=== PATIENT | male | born 1970 | race Two or more races ===

== ENCOUNTER 2018-03-30 05:36 | Emergency (ER) | payer OTHER | END 2018-03-30 06:53 | disposition home or self-care (01) | LOC: ER 05:36 | DX: M79.675 Pain in left toe(s) (principal); E11.9 Type 2 diabetes mellitus without complications; F10.10 Alcohol abuse, uncomplicated | CPT/HCPCS: 73630; 99284 ==

== ENCOUNTER → 2018-11-17 | Outpatient (CLI) | payer OTHER ==
[2018-11-11 14:50] VITALS: BP 137/86
[~2018-11-17] MED LIST: AMOX1TAB61 PO; CIPR250T30 PO; DOXY100T PO; GLIP5TAB10 PO; INSU100V3 SQ; LOPE2CAP PO; METF10007 PO; PANT20TA2 PO
== END | disposition home or self-care (01) ==
LOC: PMGWOUND 10:19
PROVIDERS: ATTEND Emergency Medicine Undersea and Hyperbaric Medicine
DX: E11.621 Type 2 diabetes mellitus with foot ulcer (principal); L97.513 Non-pressure chronic ulcer of other part of right foot with necrosis of muscle; E11.36 Type 2 diabetes mellitus with diabetic cataract; E78.00 Pure hypercholesterolemia, unspecified; K21.9 Gastro-esophageal reflux disease without esophagitis; E78.5 Hyperlipidemia, unspecified; M19.91 Primary osteoarthritis, unspecified site; Z87.891 Personal history of nicotine dependence; F10.10 Alcohol abuse, uncomplicated; Z79.4 Long term (current) use of insulin; Z90.49 Acquired absence of other specified parts of digestive tract
CPT/HCPCS: 99203

== ENCOUNTER → 2018-11-24 | Outpatient (CLI) | payer OTHER ==
[2018-11-11 14:50] VITALS: BP 137/86
== END | disposition home or self-care (01) ==
LOC: PMGWOUND 09:07
PROVIDERS: ATTEND Emergency Medicine Undersea and Hyperbaric Medicine
DX: E11.621 Type 2 diabetes mellitus with foot ulcer (principal); L97.513 Non-pressure chronic ulcer of other part of right foot with necrosis of muscle; E11.65 Type 2 diabetes mellitus with hyperglycemia; E11.36 Type 2 diabetes mellitus with diabetic cataract; L84 Corns and callosities; E78.00 Pure hypercholesterolemia, unspecified; E78.5 Hyperlipidemia, unspecified; M19.91 Primary osteoarthritis, unspecified site; K21.9 Gastro-esophageal reflux disease without esophagitis; Z79.4 Long term (current) use of insulin; Z87.891 Personal history of nicotine dependence; Z90.49 Acquired absence of other specified parts of digestive tract
CPT/HCPCS: 11042; 93923

== ENCOUNTER → 2018-11-28 | Outpatient (CLI) | payer OTHER ==
[2018-11-11 14:50] VITALS: BP 137/86
--- NOTE | 2018-11-28 17:00 | RAD ---
Ankle brachial index study. HISTORY: Nonhealing right foot wound, diabetic. Right LEXI is 1.1. Left LXEI is 1.1. IMPRESSION: Right and left ankle-brachial indices are within normal limits. Electronically signed by: Arnold Em MD (11/28/2018 4:57 PM) [id number]
--- NOTE | 2018-11-28 17:03 | RAD ---
Right lower extremity arterial Doppler ultrasound HISTORY: DX: NON HEALING WOUND RIGHT FOOT TECHNIQUE: Color Doppler, grayscale and duplex analysis performed of the right lower extremity arterial structures, from the common femoral artery through the runoff vessels. COMPARISON: None are available Findings: All velocity measurements are in centimeters per second. Triphasic waveforms are identified throughout the right lower leg arterial system. Scattered areas of mild focal calcified plaque are identified through the right femoral artery. No evidence of occlusion or high-grade narrowing. There is some irregularity of the runoff arteries in the calf and dorsalis pedis artery likely atherosclerotic. Peak systolic velocities range from 38 through 106 cm/s. IMPRESSION: Mild atherosclerotic disease. No evidence of occlusion or high-grade stenosis by ultrasound. Electronically signed by: Arnold Em MD (11/28/2018 5:00 PM) [id number]
== END | disposition home or self-care (01) ==
LOC: US 14:21
PROVIDERS: ATTEND Emergency Medicine Undersea and Hyperbaric Medicine
DX: E11.621 Type 2 diabetes mellitus with foot ulcer (principal); L97.513 Non-pressure chronic ulcer of other part of right foot with necrosis of muscle; I70.0 Atherosclerosis of aorta; I70.213 Atherosclerosis of native arteries of extremities with intermittent claudication, bilateral legs
CPT/HCPCS: 93922; 93926

== ENCOUNTER → 2018-12-01 | Outpatient (CLI) | payer OTHER ==
[2018-11-11 14:50] VITALS: BP 137/86
== END | disposition home or self-care (01) ==
LOC: PMGWOUND 09:25
PROVIDERS: ATTEND Emergency Medicine Undersea and Hyperbaric Medicine
DX: E11.621 Type 2 diabetes mellitus with foot ulcer (principal); L97.513 Non-pressure chronic ulcer of other part of right foot with necrosis of muscle; E11.65 Type 2 diabetes mellitus with hyperglycemia; E11.36 Type 2 diabetes mellitus with diabetic cataract; L84 Corns and callosities; E78.5 Hyperlipidemia, unspecified; M19.91 Primary osteoarthritis, unspecified site; E78.00 Pure hypercholesterolemia, unspecified; K21.9 Gastro-esophageal reflux disease without esophagitis; Z79.4 Long term (current) use of insulin; Z87.891 Personal history of nicotine dependence; Z90.49 Acquired absence of other specified parts of digestive tract
CPT/HCPCS: 11042

== ENCOUNTER → 2018-12-09 | Outpatient (CLI) | payer OTHER ==
[2018-11-11 14:50] VITALS: BP 137/86
== END | disposition home or self-care (01) ==
LOC: PMGWOUND 11:07
PROVIDERS: ATTEND Emergency Medicine Undersea and Hyperbaric Medicine
DX: E11.621 Type 2 diabetes mellitus with foot ulcer (principal); L97.513 Non-pressure chronic ulcer of other part of right foot with necrosis of muscle; E11.36 Type 2 diabetes mellitus with diabetic cataract; E11.65 Type 2 diabetes mellitus with hyperglycemia; L84 Corns and callosities; E78.5 Hyperlipidemia, unspecified; M19.91 Primary osteoarthritis, unspecified site; E78.00 Pure hypercholesterolemia, unspecified; K21.9 Gastro-esophageal reflux disease without esophagitis; Z79.4 Long term (current) use of insulin; Z87.891 Personal history of nicotine dependence; Z90.49 Acquired absence of other specified parts of digestive tract
CPT/HCPCS: 11042

== ENCOUNTER → 2018-12-16 | Outpatient (CLI) | payer OTHER ==
[2018-11-11 14:50] VITALS: BP 137/86
[2018-12-16 10:30] LABS: BASO # 0.1 x10^3/uL (0.0-0.2); BASO % 1 % (0-3); EOS # 0.1 x10^3/uL (0.0-0.7); EOS % 3 % (0-3); HEMATOCRIT 40.5 % (39.0-53.0); HEMOGLOBIN 13.7 g/dL (13.0-17.5); LYMPH # 1.4 x10^3/uL (1.0-4.8); LYMPH % 33 % (24-48); MEAN CORPUSCULAR HEMOGLOBIN 30 pg (25-35); MEAN CORPUSCULAR HGB CONC 34 g/dL (31-37); MEAN CORPUSCULAR VOLUME 89 fL (79-100); MONO # 0.5 x10^3/uL (0.0-1.1); MONO % 13 % (0-9); NEUT % 49 % (31-73); PLATELET COUNT 236 x10^3/uL (140-400); RED BLOOD COUNT 4.55 x10^6/uL (4.30-5.70); RED CELL DISTRIBUTION WIDTH 13.1 % (11.5-14.5); WHITE BLOOD COUNT 4.2 x10^3/uL (4.0-11.0)
[2018-12-16 10:45] LABS: CALCIUM 8.9 mg/dL (8.5-10.1); CREATININE 0.7 mg/dL (0.7-1.3); GFR 119.4; POTASSIUM 4.1 mmol/L (3.5-5.1)
[2018-12-17 04:17] LABS: HEMOGLOBIN A1C 8.8 % (4.8-5.6)
== END | disposition home or self-care (01) ==
LOC: PMGWOUND 09:11
PROVIDERS: ATTEND Emergency Medicine Undersea and Hyperbaric Medicine
DX: E11.621 Type 2 diabetes mellitus with foot ulcer (principal); L97.513 Non-pressure chronic ulcer of other part of right foot with necrosis of muscle; E11.65 Type 2 diabetes mellitus with hyperglycemia; E11.36 Type 2 diabetes mellitus with diabetic cataract; L84 Corns and callosities; E78.00 Pure hypercholesterolemia, unspecified; E78.5 Hyperlipidemia, unspecified; M19.91 Primary osteoarthritis, unspecified site; K21.9 Gastro-esophageal reflux disease without esophagitis; Z79.4 Long term (current) use of insulin; Z87.891 Personal history of nicotine dependence; Z90.49 Acquired absence of other specified parts of digestive tract
CPT/HCPCS: 11042; 36415; 80048; 83036; 85025; 85651

== ENCOUNTER → 2018-12-18 | Outpatient (CLI) | payer OTHER ==
[2018-11-11 14:50] VITALS: BP 137/86
--- NOTE | 2018-12-18 13:57 | RAD ---
MR of the right foot HISTORY: Nonhealing wound plantar surface of right foot at the ball of the foot. History of debridement. TECHNIQUE: Routine multiplanar sequences are obtained. COMPARISON: November 08, 2018 FINDINGS: Mild intramuscular edema and soft tissue edema, appears similar as the prior study. No evidence of organized fluid collection or drainable abscess. There is some mild irregularity at the skin surface plantar to the third and fourth MTP joints, may represent the location of the patient's ulcer. Primary osteoarthritis particularly at the first MTP joints is again seen, with subchondral cysts. Marginal lesions at the first metatarsal head are again identified as were seen previously. Marrow edema at the joint is again identified. Mild marrow edema within the medial hallux sesamoid has increased since prior study, as has mild marrow edema within the subjacent metatarsal head this appears degenerative or could represent superimposed sesamoiditis. No aggressive bone destruction to suggest acute osteomyelitis at the distal foot. No significant tendon sheath fluid is identified. No acute disruption of Lisfranc ligament complex or tarsometatarsal malalignment. Mild metallic type artifact again seen particularly at the distal third toe. IMPRESSION: 1. Mild skin irregularity plantar to the third and fourth MTP joints, presumably due to to the patient's ulcer. No evidence of regional abscess or acute osteomyelitis. 2. Primary osteoarthritis is again seen. 3. Marginal erosions at the first metatarsal head are redemonstrated, could be degenerative or other process such as gout. 4. Increased marrow edema at the medial hallux sesamoid and subjacent first metatarsal head, most likely degenerative or reactive. Could be sesamoiditis. Electronically signed by: Arnold Em MD (12/18/2018 1:54 PM) [id number]
== END | disposition home or self-care (01) ==
LOC: MRI 10:55
PROVIDERS: ATTEND Emergency Medicine Undersea and Hyperbaric Medicine
DX: E11.621 Type 2 diabetes mellitus with foot ulcer (principal); L97.513 Non-pressure chronic ulcer of other part of right foot with necrosis of muscle; M19.071 Primary osteoarthritis, right ankle and foot; M20.5X1 Other deformities of toe(s) (acquired), right foot; R60.0 Localized edema
CPT/HCPCS: 73718

== ENCOUNTER → 2018-12-22 | Outpatient (CLI) | payer OTHER ==
[2018-11-11 14:50] VITALS: BP 137/86
== END | disposition home or self-care (01) ==
LOC: PMGWOUND 13:09
PROVIDERS: ATTEND Emergency Medicine Undersea and Hyperbaric Medicine
DX: E11.621 Type 2 diabetes mellitus with foot ulcer (principal); L97.513 Non-pressure chronic ulcer of other part of right foot with necrosis of muscle; E11.65 Type 2 diabetes mellitus with hyperglycemia; E11.36 Type 2 diabetes mellitus with diabetic cataract; L84 Corns and callosities; E78.5 Hyperlipidemia, unspecified; E78.00 Pure hypercholesterolemia, unspecified; M19.91 Primary osteoarthritis, unspecified site; K21.9 Gastro-esophageal reflux disease without esophagitis; Z79.4 Long term (current) use of insulin; Z90.49 Acquired absence of other specified parts of digestive tract; Z87.891 Personal history of nicotine dependence
CPT/HCPCS: 11042

== ENCOUNTER → 2018-12-29 | Outpatient (CLI) | payer OTHER ==
[2018-11-11 14:50] VITALS: BP 137/86
== END | disposition home or self-care (01) ==
LOC: PMGWOUND 09:20
PROVIDERS: ATTEND Emergency Medicine Undersea and Hyperbaric Medicine
DX: E11.621 Type 2 diabetes mellitus with foot ulcer (principal); L97.513 Non-pressure chronic ulcer of other part of right foot with necrosis of muscle; E11.65 Type 2 diabetes mellitus with hyperglycemia; E11.36 Type 2 diabetes mellitus with diabetic cataract; L84 Corns and callosities; E78.5 Hyperlipidemia, unspecified; E78.00 Pure hypercholesterolemia, unspecified; K21.9 Gastro-esophageal reflux disease without esophagitis; M19.071 Primary osteoarthritis, right ankle and foot; I25.10 Atherosclerotic heart disease of native coronary artery without angina pectoris; Z79.4 Long term (current) use of insulin; Z87.891 Personal history of nicotine dependence; Z90.49 Acquired absence of other specified parts of digestive tract
CPT/HCPCS: 99214; G0463